=== PATIENT | male | born 1950 | race Asian ===

== ENCOUNTER 2018-12-22 14:39 | Emergency (ER) | payer OTHER ==
[~2018-12-22] VITALS: Ht 170.2 cm; Wt 70.0 kg
[2018-12-22 15:02] VITALS: Ht 170.2 cm; Wt 70.0 kg
[2018-12-22 17:41] VITALS: BP 134/76
== END 2018-12-22 17:41 | disposition home or self-care (01) ==
LOC: ED 14:39
DX: H17.9 Unspecified corneal scar and opacity (principal); H10.9 Unspecified conjunctivitis